=== PATIENT | male | born 1955 | race Caucasian/White ===

== ENCOUNTER 2024-02-15 10:33 | Outpatient (CLI) | payer MEDICARE ==
[2024-02-15] MEDS ORDERED: E-Z-HD 98% W/W 340GM BOT (x-ray ONLY) ONE (10:55)
[2024-02-15] MEDS ORDERED: Barium Sulfate 96% 176 GM BOT (xray ONLY) ONE (10:55)
== END 2024-02-15 10:34 | disposition home or self-care (01) ==
LOC: RAD 10:33
PROVIDERS: ATTEND Surgery
DX: K44.9 Diaphragmatic hernia without obstruction or gangrene (principal)
CPT/HCPCS: 74220

== ENCOUNTER 2024-02-15 12:31 | Outpatient (CLI) | payer MEDICARE ==
[2024-02-15 13:52] LABS: #Basophils 0.08 10x3/uL (0.0-0.2); #Eosinphils 0.09 10x3/uL (0.0-0.5); #Monocytes 0.46 10x3/uL (0.0-1.1); #Neutrophils 2.33 10x3/uL (1.5-8.4); %Basophils 1.8 % (0.0-2.0); %Eosinophils 2.1 % (0.0-6.0); %Lymphocytes 31.7 % (18.0-47.0); %Monocytes 10.6 % (0.0-10.0); %Neutrophils 53.6 % (40.0-75.0); Hematocrit 41.6 % (38.8-50.0); Hemoglobin 14.4 g/dL (13.5-17.5); Mean Corpuscular HGB CONC 34.6 g/dL (32.0-36.0); Mean Corpuscular Hemoglobin 31.6 pg (27.0-33.0); Mean Corpuscular Volume 91.2 fl (81.2-95.1); Mean Platelet Volume 11.3 fl (7.4-10.4); Platelet Count 219 10x3/uL (150-450); Red Blood Cell (RBC) Count 4.56 10x6/uL (4.32-5.72); White Blood Cell (WBC) Count 4.4 10x3/uL (3.5-10.5)
[2024-02-15 14:48] LABS: Anion Gap 13 mmol/L (10-20); BUN (Urea Nitrogen) 20 mg/dL (8.4-25.7); Calc. Creatinine Clearance 0 mL/min (70-130); Calcium 9.2 mg/dL (7.8-10.44); Carbon Dioxide 24 mmol/L (23-31); Chloride 106 mmol/L (98-107); Estimated GFR 75; Glucose 138 mg/dL (80-115); Sodium 139 mmol/L (136-145)
== END 2024-02-15 12:32 | disposition home or self-care (01) ==
LOC: LABBT 12:31
PROVIDERS: ATTEND Surgery
DX: Z01.818 Encounter for other preprocedural examination (principal); K44.9 Diaphragmatic hernia without obstruction or gangrene
CPT/HCPCS: 80048; 85025; 93005; 93010

== ENCOUNTER 2024-02-22 06:47 | Day surgery (SDC) | payer MEDICARE ==
[2024-02-15 13:11] VITALS: BMI 21.7
[2024-02-22] MEDS ORDERED: PROPOFOL 20 ML ONE (08:16)
[2024-02-22] MEDS ORDERED: Rocuronium Bromide 10 MG/ML (10ML VIAL) ONE (08:17)
[2024-02-22] MEDS ORDERED: Lidocaine 1% PF 5 ML VIAL ONE (08:17)
[2024-02-22] MEDS ORDERED: EPINEPHrine 1 MG/ML VIAL ONE (08:37)
[2024-02-22] MEDS ORDERED: PROPOFOL 40 ML ONE (08:38)
[2024-02-22] MEDS ORDERED: Bupivacaine 0.25% HCL 30 ML VIAL ONE (08:38)
[2024-02-22] MEDS ORDERED: CEFAZOLIN 2 GM VIAL ONE (09:08)
[2024-02-22] MEDS ORDERED: Sodium Chloride 0.9% 100 ML ONE (09:08)
[2024-02-22] MEDS ORDERED: fentaNYL PF 100 MCG/2 ML SYRINGE ONE (09:17)
[2024-02-22] MEDS ORDERED: Dexamethasone 20 MG/5 ML VIAL ONE (09:38)
[2024-02-22] MEDS ORDERED: PHENYLEPHRINE-NS 100 MCG/ML 10 ML SYRINGE ONE (09:51)
[2024-02-22] MEDS ORDERED: Ondansetron PF 4 MG/2 ML Vial ONE (10:14)
[2024-02-22] MEDS ORDERED: SUGAMMADEX SODIUM 200 MG/2 ML VIAL ONE (10:20)
[2024-02-22] MEDS ORDERED: fentaNYL 50 mcg/mL 1 mL Vial ONE (10:56)
[2024-02-22] MEDS ORDERED: Ketorolac Tromethamine 30 MG (1 mL) VIAL ONE (11:02)
== END 2024-02-22 13:00 | disposition home or self-care (01) ==
LOC: SDC 06:47
PROVIDERS: ATTEND Surgery
PROC: 0BUT4JZ Supplement Diaphragm with Synthetic Substitute, Percutaneous Endoscopic Approach (ICD-10-PCS; principal; 2024-02-22)
DX: K44.9 Diaphragmatic hernia without obstruction or gangrene (principal); J45.909 Unspecified asthma, uncomplicated; G43.909 Migraine, unspecified, not intractable, without status migrainosus; Z79.82 Long term (current) use of aspirin; Z79.899 Other long term (current) drug therapy; Z88.8 Allergy status to other drugs, medicaments and biological substances; Z98.890 Other specified postprocedural states; Z87.891 Personal history of nicotine dependence; K22.70 Barrett's esophagus without dysplasia
CPT/HCPCS: 43281; J0171; J3010; J0665; J1100; J1885; J2405; J2704; J3490

== ENCOUNTER 2024-07-28 10:25 | Observation (INO) | payer MEDICARE, OTHER ==
[2024-07-28 11:28] LABS: #Basophils 0.09 10x3/uL (0.0-0.2); %Basophils 0.8 % (0.0-1.0); %Eosinophils 0.3 % (0.0-10.0); %Lymphocytes 6.7 % (21.0-51.0); %Monocytes 7.2 % (0.0-10.0); %Neutrophils 84.4 % (42.0-75.0); Hematocrit 40.5 % (42.0-52.0); Hemoglobin 13.3 g/dL (14.0-18.0); Mean Corpuscular HGB CONC 32.8 g/dL (32.0-36.0); Mean Corpuscular Hemoglobin 30.9 pg (27.0-31.0); Mean Corpuscular Volume 94.2 fL (78.0-98.0); Mean Platelet Volume 11.2 fL (7.4-10.4); Platelet Count 183 10x3/uL (130-400); RBC Distribution Width 12.4 % (11.5-14.5)
[2024-07-28 11:43] LABS: INR-International Normal Ratio 1.1; PTT 26.1 sec (22.9-36.1); Prothrombin Time 14.7 sec (12.0-14.7)
[2024-07-28 11:49] LABS: ALT (SGPT) 20 U/L (8-55); AST (SGOT) 24 U/L (5-34); Albumin 3.3 g/dL (3.4-4.8); Alkaline Phosphatase 56 U/L (40-110); Anion Gap 16 mmol/L (10-20); BUN (Urea Nitrogen) 21 mg/dL (8.4-25.7); Bilirubin, Total 0.4 mg/dL (0.2-1.2); CK (CPK) 146 U/L (30-200); Calc. Creatinine Clearance 0 mL/min (70-130); Calcium 8.5 mg/dL (7.8-10.44); Carbon Dioxide 19 mmol/L (23-31); Chloride 110 mmol/L (98-107); Estimated GFR 86; Globulin 2.5 g/dL (2.4-3.5); Glucose 102 mg/dL (80-115); Potassium 3.9 mmol/L (3.5-5.1); Protein, Total 5.8 g/dL (5.8-8.1); Sodium 141 mmol/L (136-145)
[2024-07-28 11:50] LABS: Acetaminophen Less than 10 mcg/mL (Less than 10); Alcohol Less than 10.0 mg/dL (Less than 10); Salicylate Less than 8.0 mg/dL (Less than 8.0); Troponin I 0.011 ng/mL (< 0.028)
[2024-07-28] MEDS ORDERED: cefTRIAXone (ROCEPHIN) 2 GM VIAL ONE (12:29)
[2024-07-28] MEDS ORDERED: Ondansetron PF 4 MG/2 ML Vial ONE (12:29)
[2024-07-28 12:31] LABS: Amphetamine Not Detected (NotDetected); Barbiturates Screen Not Detected (NotDetected); Benzodiazepine Screen Not Detected (NotDetected); Cocaine Metabolite Screen Not Detected (NotDetected); Methadone Not Detected (NotDetected); Methamphetamine Not Detected (NotDetected); Opiate Screen Not Detected (NotDetected); Oxycodone Screen Not Detected (NotDetected); Phencyclidine (PCP) Not Detected (NotDetected); THC/Cannabinoid Screen Not Detected (NotDetected); Tricyclic Screen Not Detected (NotDetected)
[2024-07-28 13:34] LABS: Bacteria/HPF None Seen HPF (None Seen); Bilirubin Negative (Negative); Blood, Urine Negative (Negative); CAUTI Indications for Culture Pelvic or flank pain; Clarity Clear (Clear); Glucose, Urine (Dipstick) Normal (Negative); Ketone, Urine Trace mg/dL (Negative); Leukocyte Negative Leu/uL (Negative); Nitrite Negative (Negative); Protein, Urine (Dipstick) 30 mg/dL (Neg-Trace); RBC/HPF 0-3 HPF (0-3); Specific Gravity, Urine 1.014 (1.002-1.036); Squamous Epithelial 0-3 HPF (0-3); Urobilinogen Normal mg/dL (Less than 2); pH, Urine 7.5 (5.0-9.0)
[2024-07-28 13:39] LABS: Sperm/HPF Rare HPF (None Seen)
[2024-07-28 13:40] LABS: Urine Culture Reflex No No
[2024-07-28] MEDS ORDERED: Iopamidol-370 76% 500 ML MDV (1 ML CHARGE) ONE (14:28)
[2024-07-28 15:35] VITALS: BMI 17.3
[2024-07-28] MEDS ORDERED: Senokot S 8.6-50 MG TAB PO PRN (15:58)
[2024-07-28] MEDS ORDERED: Acetaminophen 325 MG TAB PO PRN (15:58)
[2024-07-28] MEDS ORDERED: Acetaminophen/Codeine 30-300mg Tablet PO PRN (15:58)
[2024-07-28] MEDS ORDERED: Acetaminophen 650 MG Suppository PR PRN (15:58)
[2024-07-28] MEDS ORDERED: Bisacodyl 10 MG SUPP PR PRN (15:58)
[2024-07-28] MEDS ORDERED: Guaifenesin DM 100-10/5 ML UDCUP PO PRN (15:58)
[2024-07-28] MEDS: Enoxaparin 40 MG (0.4 mL) SYRINGE SC SCH (17:46)
[2024-07-28] MEDS: Sodium Chloride 0.9% 1,000 ML IV SCH (17:47)
[2024-07-28] MEDS: Bisacodyl 5 MG TAB PO PRN (23:56)
[2024-07-29 05:07] LABS: #Basophils 0.08 10x3/uL (0.0-0.2); %Eosinophils 1.6 % (0.0-10.0); %Lymphocytes 21.8 % (21.0-51.0); %Monocytes 10.6 % (0.0-10.0); %Neutrophils 64.8 % (42.0-75.0); Hemoglobin 13.2 g/dL (14.0-18.0); Mean Corpuscular Hemoglobin 30.7 pg (27.0-31.0); Mean Platelet Volume 11.7 fL (7.4-10.4); Platelet Count 192 10x3/uL (130-400); RBC Distribution Width 12.5 % (11.5-14.5)
[2024-07-29 05:39] LABS: ALT (SGPT) 27 U/L (8-55); AST (SGOT) 55 U/L (5-34); Albumin 3.2 g/dL (3.4-4.8); Alkaline Phosphatase 43 U/L (40-110); Anion Gap 15 mmol/L (10-20); BUN (Urea Nitrogen) 12 mg/dL (8.4-25.7); Bilirubin, Total 0.6 mg/dL (0.2-1.2); Calc. Creatinine Clearance 83 mL/min (70-130); Calcium 8.5 mg/dL (7.8-10.44); Carbon Dioxide 20 mmol/L (23-31); Chloride 110 mmol/L (98-107); Estimated GFR 93; Globulin 2.4 g/dL (2.4-3.5); Glucose 87 mg/dL (80-115); Protein, Total 5.6 g/dL (5.8-8.1); Sodium 141 mmol/L (136-145)
[2024-07-29] MEDS: Pantoprazole DR 40 MG TAB PO SCH (08:36)
[2024-07-29] MEDS: Aspirin Chewable 81 MG TAB PO SCH (08:36)
[2024-07-29 12:09] VITALS: TEMP 98.3
[2024-07-29 14:53] VITALS: BMI 17.3
[2024-07-29] MEDS ORDERED: Magnevist 469MG/ML 20 ML VIAL ONE (15:48)
[2024-07-29 16:23] VITALS: BP 126/65
[2024-07-29] MEDS ORDERED: levETIRAcetam 500 MG TAB PO SCH (21:00)
[2024-07-29] MEDS ORDERED: Tamsulosin HCl 0.4 MG CAP PO SCH (21:00)
[2024-08-02 15:18] LABS: % Free PSA 33.2 % (.); Total PSA 2.2 ng/mL (0.0-4.0)
== END 2024-07-29 17:25 | disposition home or self-care (01) ==
LOC: ERS 10:25 → ERHOLD 14:42 → 2SE 17:23
PROVIDERS: ADMIT Internal Medicine; ATTEND Internal Medicine
DX: R55 Syncope and collapse (principal); R56.9 Unspecified convulsions; G43.109 Migraine with aura, not intractable, without status migrainosus; R41.82 Altered mental status, unspecified; K21.9 Gastro-esophageal reflux disease without esophagitis; Z98.890 Other specified postprocedural states; Z87.19 Personal history of other diseases of the digestive system; Z88.4 Allergy status to anesthetic agent; Z91.048 Other nonmedicinal substance allergy status; Z79.899 Other long term (current) drug therapy
CPT/HCPCS: 70450; 70553; 71045; 74177; 76376; 80053; 80306; 80307; 81001; 82550; 83605; 84153; 84154; 84484; 85025; 85610; 85730; 93005; 93880; J0696; J2405; J7030; 36415; 84443; G0378; Q9967